=== PATIENT | female | born 1975 | race Caucasian/White ===

== ENCOUNTER 2018-02-17 19:09 | Emergency (ER) | payer BC, SELFPAY ==
[2018-02-17 19:10] VITALS: BP 164/91; PULSE 118; RESP 17; TEMP 37.3; O2SAT 99; BMI 38.2
--- NOTE | 2018-02-17 19:11 | ED.RN ---
NO OLD EKG'S IN MUSE
--- NOTE | 2018-02-17 19:20 | EKG12_ITS ---
Test Reason : PALPITATIONS Blood Pressure : / mmHG Vent. Rate : 108 BPM Atrial Rate : 108 BPM P-R Int : 132 ms QRS Dur : 088 ms QT Int : 332 ms P-R-T Axes : 051 062 044 degrees QTc Int : 444 ms Sinus tachycardia Nonspecific ST abnormality Abnormal ECG Confirmed by DALTON JOHNSON, TIP ([id number]), sports editor MELVI GALARZA ([id number] on 02/20/2018 1:01:07 PM Referred By: MAGNOLIA Confirmed By:TIP HOFFMAN MD
--- NOTE | 2018-02-17 19:21 | ED.DCSUM_ITS ---
- ER Visit Summary Date of Service: 02/17/18 Chief Complaint: Palpitations History of Present Illness: The patient is a 42 F who presents with palpitations. She states she has had it for 1 week. It has been increasing. She states her feel like her heart is skipping a beat and stops. She denies any chest pain with this. She does have a history of SVT. She takes metoprolol twice a day. She has been medication compliant. She states that sometimes her symptoms are worse when she ambulates. Physical Examination: Vital signs reviewed. HEENT exam unremarkable. Heart is tachycardic and regular rhythm without murmurs. Lungs are clear to auscultation. Abdomen is soft and nontender. Extremities reveal no edema. Skin exam normal. Neurologic exam normal. Test Results: EKG is sinus rhythm with rate of 108. Labs are normal except for a white blood cell count of 50.7. Troponin normal. TSH 3.87 Emergency Department Course and Treatment: Patient had no symptoms here. I ambulated her around the department with a monitor and storage bin tender. There was no ectopy. Patient will be discharged to follow-up with her sugar boiler for a Holter monitor Treatment Plan: [] Disposition: Discharge Impression: Palpitations This note was generated with [employer] dictation software. It may contain incorrect words, spelling, and punctuation that were not noted in review of the chart prior to signing ED Disposition - Plan for ED Patient: Chief Complaint: Palpitations Referrals: NOT,DEFINED [NON-STAFF] -
[2018-02-17 19:55] LABS: Absolute Lymphocyte Count 4.53 X10^3/ul (0.83-4.51); Absolute Neutrophil Count 9.8 X10^3/uL (2.0-7.7); Basophil# 0.03 X10^3/uL; Basophil% 0.2 % (0-1); Eosinophil# 0.44 X10^3/uL; Eosinophils% 2.8 % (0-5); Hematocrit 42.6 % (37-47); Hemoglobin 14.2 g/dl (12.0-15.0); Lymphocyte # 4.53 X10^3/ul (4.0); Lymphocyte % 28.9 % (19-41); Mean Corp Hgb Conc 33.3 g/gl (32-36); Mean Corpuscular Hgb 30.9 pg (27.0-32.0); Mean Corpuscular Volume 92.8 fL (81-99); Mean Platelet Vol. 9.7 fl (6.2-12.0); Monocyte# 0.84 X10^3/uL; Monocyte% 5.4 % (0-10); Neutrophil # 9.78 X10^3/uL (2.7-7.7); Neutrophil % 62.2 % (47-70); POSITIVE COUNT NO; POSITIVE DIFFERENTIAL NO; POSITIVE MORPHOLOGY NO; Platelet Count 311 K/mm3 (150-450); RBC Distribution Width CV 13.2 % (11.6-14.6); RBC Distribution Width SD 43.8 fl (35.1-43.9); Red Blood Count 4.59 M/mm3 (4.2-5.4); White Blood Count 15.7 K/mm3 (4.4-11.0)
[2018-02-17 20:16] VITALS: BP 122/71; PULSE 93; RESP 18; O2SAT 96
[2018-02-17 20:22] LABS: Anion Gap 6 (5-15); BUN 12 mg/dL (7-18); Calcium,Total 8.5 mg/dL (8.5-10.1); Chloride 107 mmol/L (98-107); Creatinine, Serum 0.86 mg/dL (0.55-1.02); EST Glomerular Filtration Rate 76 mL/min (>60); Est Glom Filt Rate - Afr Amer 92 mL/min (>60); Estimated Creatinine Clearance 75.12 ml/min; Glucose 107 mg/dL (74-106); Potassium 3.7 mmol/L (3.5-5.1); Sodium Level 138 mmol/L (136-145); Thyroid Stim Hormone (TSH) 3.87 uIU/mL (0.358-3.74)
--- NOTE | 2018-02-17 20:47 | ED.DEP ---
ED Disposition - Plan for ED Patient: Disposition: Home or Assisted Living Chief Complaint: Palpitations Instructions: ED Palpitations Referrals: NOT,DEFINED [NON-STAFF] -
[2018-02-17 21:09] VITALS: BP 144/88; PULSE 94; RESP 20; O2SAT 100
== END 2018-02-17 21:10 | disposition home or self-care (01) ==
PROVIDERS: Emergency Provider Emergency Medicine; Family Provider Nurse Practitioner Adult Health; PCP Nurse Practitioner Adult Health
DX: R00.2 Palpitations (principal); I47.1 Supraventricular tachycardia; Z79.82 Long term (current) use of aspirin; Z79.899 Other long term (current) drug therapy; Z72.0 Tobacco use
CPT/HCPCS: 80048; 84443; 84484; 85025; 93005; 99284; A4216

== ENCOUNTER → 2020-04-08 17:09 | Outpatient (CLI) | payer BC, SELFPAY | PROVIDERS: PCP Family Medicine; Referring Provider Family Medicine; Visit Provider Family Medicine | DX: R05 Cough (principal) | CPT/HCPCS: 87635; C9803; U0003 ==

== ENCOUNTER 2020-10-23 15:16 | Outpatient (RCR) | payer BC, SELFPAY | END 2021-01-05 23:59 | LOC: IMMUN 15:16 | PROVIDERS: PCP Family Medicine; Visit Provider Family Medicine | DX: Z23 Encounter for immunization (principal) | CPT/HCPCS: 0001A; 0002A; 91300 ==

== ENCOUNTER 2021-10-11 02:06 | Emergency (ER) | payer BC, SELFPAY ==
[2021-10-11 02:06] VITALS: BP 152/95; PULSE 166; RESP 16; TEMP 36.1; O2SAT 100; BMI 37.5
--- NOTE | 2021-10-11 02:18 | EKG12_ITS ---
Test Reason : REPEAT Blood Pressure : / mmHG Vent. Rate : 099 BPM Atrial Rate : 099 BPM P-R Int : 136 ms QRS Dur : 086 ms QT Int : 338 ms P-R-T Axes : 048 053 050 degrees QTc Int : 433 ms Normal sinus rhythm Normal ECG Confirmed by MARIANA MAGAÑA MD ([id number]), commercial production editor ELI MCCALL ([id number]) on 10/12/2021 9:44:16 AM Referred By: PB Confirmed By:MARIANA MAGAÑA MD
[2021-10-11 02:30] LABS: Absolute Lymphocyte Count 6.89 X10^3/uL (0.83-4.51); Absolute Neutrophil Count 6.8 X10^3/uL (2.0-7.7); Basophil# 0.08 X10^3/uL; Basophil% 0.5 % (0-1); Eosinophil# 0.38 X10^3/uL; Eosinophils% 2.5 % (0-5); Hematocrit 44.3 % (37-47); Hemoglobin 15.6 g/dL (12.0-15.0); Lymphocyte # 6.89 X10^3/ul (0.83-4.51); Lymphocyte % 45.4 % (19-41); Mean Corp Hgb Conc 35.2 g/dL (32-36); Mean Corpuscular Hgb 32.2 pg (27.0-32.0); Mean Corpuscular Volume 91.3 fL (81-99); Mean Platelet Vol. 9.8 fl (6.2-12.0); Monocyte# 0.98 X10^3/uL; Monocyte% 6.5 % (0-10); NRBC Flagged by Analyzer 0 % (0-5); Neutrophil # 6.79 X10^3/uL (2.7-7.7); Neutrophil % 44.8 % (47-70); POSITIVE DIFFERENTIAL YES; Platelet Count 308 K/mm3 (150-450); RBC Distribution Width CV 13.1 % (11.6-14.6); RBC Distribution Width SD 44.1 fl (35.1-43.9); Red Blood Count 4.85 M/mm3 (4.2-5.4); White Blood Count 15.2 K/mm3 (4.4-11.0)
[2021-10-11] MEDS: Adenosine 6 MG/2 ML Syringe IV (02:31)
[2021-10-11 02:32] LABS: Differential Indicated SCAN CRITERIA MET
[2021-10-11] MEDS: 0.9% Normal Saline 1,000 ML 999 ML IV (02:32)
--- NOTE | 2021-10-11 02:37 | EKG12_ITS ---
Test Reason : SVT Blood Pressure : / mmHG Vent. Rate : 162 BPM Atrial Rate : 125 BPM P-R Int : 000 ms QRS Dur : 088 ms QT Int : 298 ms P-R-T Axes : 000 056 026 degrees QTc Int : 489 ms Supraventricular tachycardia Nonspecific ST abnormality Abnormal ECG Confirmed by ARCHANA JOHNSON, MARIANA ([id number]), rewrite editor ELI MCCALL ([id number]) on 10/12/2021 9:45:01 AM Referred By: PB Confirmed By:MARIANA MAGAÑA MD
[2021-10-11 02:42] VITALS: BP 114/71; PULSE 97; RESP 18; O2SAT 95
[2021-10-11 03:07] LABS: Anion Gap 6 (5-15); BUN 14 mg/dL (7-18); BUN/Creat Ratio 17.5 RATIO (10-20); Chloride 110 mmol/L (98-107); EST Glomerular Filtration Rate 81 mL/min (>60); Est Glom Filt Rate - Afr Amer 99 mL/min (>60); Estimated Creatinine Clearance 77.39 ml/min; Glucose 97 mg/dL (74-106); Magnesium 2.1 mg/dL (1.6-2.6); Potassium 4.1 mmol/L (3.5-5.1); Sodium Level 140 mmol/L (136-145); Thyroid Stim Hormone (TSH) 9.74 uIU/mL (0.358-3.74); Troponin-I HS 6 pg/mL (3.0-54.0)
--- NOTE | 2021-10-11 03:40 | EX.ED.DYSGE1 ---
HPI History of Present Illness Chief Complaint: Palpitations Narrative Narrative: Patient is a 46-year-old female with past medical history of SVT. She states she takes metoprolol to help control this. She states she is occasionally had breakthroughs where she is needed adenosine to resolve her sudden onset of the abnormal heart rhythm. She states that she was sleeping this evening and then awoke with palpitations and racing heart similar to her previous events of SVT. Patient states she tried vagal maneuvers at home with no symptom improvement. She also reports has been taking her metoprolol as directed. She denies any excessive stimulant use or illicit drug use. She states that because she is in SVT and she knows she will need medication to break the rhythm she presents for evaluation [facility] Medical History (Updated 10/11/21 @ 03:[address] Hao Pineda, ) Nicotine abuse Obesity Supraventricular tachycardia Home Medications metoprolol tartrate 25 mg tablet 25 mg PO BID 09/26/17 [History Last Taken Unknown] aspirin 325 mg PO DAILY@0800 02/17/18 [History Last Taken Unknown] Allergy/AdvReac Type Severity Reaction Status Date / Time codeine Allergy Hives Verified 10/11/21 02:06 Family History (Updated 09/26/17 @ 15:09 by Pallavi Lawson) Mother Hypertension Father Hypertension Daughter Factor V deficiency May Thurner Syndrome Surgical History (Updated 09/26/17 @ 15:08 by Pallavi Lawson) History of radiofrequency ablation procedure for cardiac arrhythmia (~04/2013) History of tonsillectomy Hx of cholecystectomy Social History (Updated 09/26/17 @ 15:08 by Pallavi Lawson) Smoking Status: Current every day smoker tobacco type: cigarettes ROS ROS ED Constitutional Constitutional ED: Denies chills or fever(s) ENT ENT ED: Denies sore throat Cardiovascular Cardiovascular: Reports palpitations and racing heartbeat; Denies chest pain Respiratory/Chest Respiratory/Chest: Denies cough or dyspnea Gastrointestinal Gastrointestinal: Denies abdominal pain, diarrhea, nausea or vomiting Genitourinary Genitourinary ED: Denies dysuria Musculoskeletal Musculoskeletal: Denies myalgias Integumentary Denies rash Neurologic Neurologic: Denies headache(s) Hematologic/Lymphatic Hematologic/Lymphatic: Denies easy bleeding or easy bruising EXAM Physical Exam Const Vital Signs: 10/11/21 02:06 10/11/21 02:42 10/11/21 03:46 Temperature 96.9 F L Temperature Source Temporal Pulse Rate 166 H 97 92 Respiratory Rate 16 18 15 Blood Pressure 152/95 H 114/71 122/85 H Blood Pressure Mean 114 85 Pulse Ox 100 95 100 Oxygen Delivery Method Room Air Room Air Positive well nourished and well developed General Appearance ED: well developed Eyes PERRL and EOMs intact bilaterally Neck supple Resp normal respiratory effort and clear to auscultation bilaterally Cardio Rate: other Other Details: Tachycardic rate with regular rhythm Extremity normal to inspection Extremity Narrative: No asymmetric edema no pitting edema negative Homans' sign bilaterally Neuro oriented x3 and CN's II-XII intact bilaterally Sensorium / Orientation: alert Motor Exam: strength 5/5 throughout Psych mental status grossly normal Skin no rashes or lesions noted MDM MDM MDM Narrative Medical decision making narrative: Patient presented to the ER and supraventricular tachycardia going approximately 180 bpm. Secondary to this she was given 6 mg of adenosine and did have spontaneous resolution of her heart rhythm to normal sinus. Basic blood work was checked in order to rule out an underlying cause such as hypokalemia or hypomagnesemia. Labs revealed no clinically significant electrolyte abnormality. Her white count was elevated but chart review shows this is been up in the past and patient does not have any sick symptoms so I believe it is more of a stress response. Her TSH has increased from 3.8-9.7 indicating hypothyroidism which could possibly be a cause. However there is no need for further evaluation of the thyroid at this time. Patient has remained in normal sinus rhythm since her initial cardioversion with 6 mg of adenosine and is therefore safe for discharge. Lab Data Attestation: I reviewed the patient's lab results. Labs: Laboratory Results - last 24 hr 10/11/21 10/11/21 02:10 02:10 WBC 15.2 H RBC 4.85 Hgb 15.6 H Hct 44.3 MCV 91.3 MCH 32.2 H MCHC 35.2 RDW Std Deviation 44.1 H RDW Coeff of Jc 13.1 Plt Count 308 MPV 9.8 Immature Gran % (Auto) 0.300 Neut % (Auto) 44.8 L Lymph % (Auto) 45.4 H [place] % (Auto) 6.5 Eos % (Auto) 2.5 Baso % (Auto) 0.5 Absolute Neuts (auto) 6.8 Absolute Lymphs (auto) 6.89 H Nucleated RBC % 0 Sodium 140 Potassium 4.1 Chloride 110 H Carbon Dioxide 24.0 Anion Gap 6 BUN 14 Creatinine 0.80 Estim Creat Clear Calc 77.39 Est GFR (MDRD) Af Amer 99 Est GFR (MDRD) Non-Af 81 BUN/Creatinine Ratio 17.5 Glucose 97 Calcium 9.0 Magnesium 2.1 Troponin I High Sens 6 TSH 9.74 H Discharge Plan Triage Chief Complaint: Palpitations ED Provider: Hao Pineda Dx/Rx/DC Orders Clinical Impression: Supraventricular tachycardia Instructions: Supraventricular Tachycardia Prescriptions: No Action metoprolol tartrate 25 mg tablet 25 mg PO BID RF: 0 aspirin 325 MG tablet 325 mg PO DAILY@0800 RF: 0 Primary Care Provider: Quan Ugalde Referrals: Quan Ugalde MD [Primary Care Provider] - Activity Restrictions/Additional Instructions: Please follow-up with your family doctor to discuss further testing for your thyroid as the value was found to be abnormal on today's visit. Please continue taking your metoprolol as directed by cardiology and return to the ER should you have any further concerns Disposition Disposition: Home, Self Care Discharge Date/Time: 10/11/21 03:50
[2021-10-11 03:46] VITALS: BP 122/85; PULSE 92; RESP 15; O2SAT 100
== END 2021-10-11 03:50 | disposition home or self-care (01) ==
PROVIDERS: Emergency Provider Emergency Medicine; PCP Family Medicine; Visit Provider Emergency Medicine
DX: I47.1 Supraventricular tachycardia (principal); F17.210 Nicotine dependence, cigarettes, uncomplicated; E66.9 Obesity, unspecified; Z68.37 Body mass index [BMI] 37.0-37.9, adult
CPT/HCPCS: 80048; 83735; 84443; 84484; 85025; 93005; 96361; 96374; 99282; J7030; A4216; J0153